=== PATIENT | male | born 1985 | race African-American/Black ===

== ENCOUNTER 2018-01-12 13:33 | Emergency (ER) | payer SELFPAY ==
[~2018-01-12] VITALS: Ht 172.7 cm; Wt 135.0 kg
[2018-01-12 13:38] VITALS: BP 193/106; PULSE 79; RESP 17; TEMP 98.6; O2SAT 98
[2018-01-12] MEDS ORDERED: SODIUM CHLORIDE 0.9% FLUSH 10 ML FLUSH IVF PRN (15:45)
[2018-01-12 16:18] LABS: AUTOMATED NEUTROPHIL # 5.5 TH/MM3 (1.8-7.7); BASOPHIL # 0.1 TH/MM3 (0-0.2); BASOPHIL % 0.6 % (0.0-2.0); EOSINOPHIL # 0.2 TH/MM3 (0-0.4); EOSINOPHIL % 2.2 % (0.0-4.0); HEMATOCRIT 43.8 % (39.0-51.0); HEMOGLOBIN 14.6 GM/DL (13.0-17.0); LYMPH % 24.7 % (9.0-44.0); LYMPHOCYTE # 2.1 TH/MM3 (1.0-4.8); MEAN CELL VOLUME 84.7 FL (80.0-100.0); MEAN CORPUSCULAR HEMOGLOBIN 28.2 PG (27.0-34.0); MEAN CORPUSCULAR HGB CONC 33.2 % (32.0-36.0); MEAN PLATELET VOLUME 7.8 FL (7.0-11.0); MONO % 6.4 % (0.0-8.0); MONOCYTE # 0.5 TH/MM3 (0-0.9); NEUT % 66.1 % (16.0-70.0); PLATELET COUNT 246 TH/MM3 (150-450); RED BLOOD COUNT 5.17 MIL/MM3 (4.50-5.90); RED CELL DISTRIBUTION WIDTH 14.4 % (11.6-17.2); WHITE BLOOD COUNT 8.3 TH/MM3 (4.0-11.0)
[2018-01-12 16:27] VITALS: BP_SYST 158; BP_SYST 171; BP_DIAS 89; BP_DIAS 98; PULSE 72; PULSE 78; RESP 18; O2SAT 98
[2018-01-12 16:28] LABS: INTERNATIONAL NORMALIZED RATIO 1.1 RATIO; PROTHROMBIN TIME - PATIENT 10.8 SEC (9.8-11.6)
[2018-01-12] MEDS ORDERED: HYDR12.57 PO (16:35)
[2018-01-12] MEDS ORDERED: AMLO10 PO ×2 (16:35→16:46)
--- NOTE | 2018-01-12 16:41 | PD ---
HPI Chief Complaint: Hypertension Time Seen by Provider: 15:42 Travel History International Travel<30 days: No Contact w/Intl Traveler<30days: No Traveled to known affect area: No History of Present Illness HPI 32-year-old -Iranian male presents emergency department with reports of hypertension. Patient was at [facility] and sent here due to his high blood pressure. Patient denies any symptoms of hypertension including no headache, dizziness, or chest pain or shortness of breath. He has no significant edema. Patient states he was taking Norvasc 20mg as well as 12.5 mg hydrochlorothiazide up until 2 years ago. He just stopped taking it. He is trying to be medically cleared so he can return to [facility]. He has no acute medical issues otherwise. He has allergies to shellfish. [facility] Past Medical History Hypertension: Yes Social History Alcohol Use: No Tobacco Use: No Substance Use: No Allergies-Medications (Allergen,Severity, Reaction): Coded Allergies: shellfish derived (Verified Allergy, Severe, hives, 01/12/18) Reported Meds & Prescriptions Reported Meds & Active Scripts Active Hydrochlorothiazide 12.5 Mg Tab 12.5 Mg PO DAILY Norvasc (Amlodipine Besylate) 10 Mg Tab 10 Mg PO DAILY Reported Hydrochlorothiazide 12.5 Mg Cap 12.5 Mg PO DAILY Norvasc (Amlodipine Besylate) 10 Mg Tab 10 Mg PO DAILY Review of Systems Except as stated in HPI: all other systems reviewed are Neg General / Constitutional: No: Fever Eyes: No: Visual changes HENT: No: Headaches Cardiovascular: No: Chest Pain or Discomfort Respiratory: No: Shortness of Breath Gastrointestinal: No: Abdominal Pain Genitourinary: No: Dysuria Musculoskeletal: No: Pain Skin: No Rash Neurologic: No: Weakness Psychiatric: No: Depression Endocrine: No: Polydipsia Hematologic/Lymphatic: No: Easy Bruising Physical Exam Narrative GENERAL: Moderately obese male in no acute distress. SKIN: Warm and dry. Normal color. Normal turgor. HEAD: Atraumatic. Normocephalic. EYES: Pupils equal and round. No scleral icterus. No injection or drainage. ENT: No nasal bleeding or discharge. Mucous membranes pink and moist. Pharynx is clear. Airway is patent. NECK: Trachea midline. Supple and nontender. CARDIOVASCULAR: Regular rate and rhythm. RESPIRATORY: No accessory muscle use. Clear to auscultation. Breath sounds equal bilaterally. GASTROINTESTINAL: Abdomen soft, non-tender, nondistended. Hepatic and splenic margins not palpable. MUSCULOSKELETAL: Extremities without clubbing, cyanosis, or edema. No obvious deformities. NEUROLOGICAL: Awake and alert. No obvious cranial nerve deficits. Motor grossly within normal limits. Five out of 5 muscle strength in the arms and legs. Normal speech. PSYCHIATRIC: Appropriate mood and affect; insight and judgment normal. Data Data Last Documented VS Vital Signs Date Time Temp Pulse Resp B/P (MAP) Pulse Ox O2 Delivery O2 Flow Rate FiO2 01/12/18 16:27 72 18 158/89 (112) 98 Room Air 01/12/18 13:38 98.6 Orders Orders Complete Blood Count With Diff (01/12/18 15:42) Prothrombin Time / Inr (Pt) (01/12/18 15:42) Act Partial Throm Time (Ptt) (01/12/18 15:42) Ecg Monitoring (01/12/18 15:42) Bilateral Bp Monitoring (01/12/18 15:42) Iv Access Insert/Monitor (01/12/18 15:42) Oximetry (01/12/18 15:42) Sodium Chloride 0.9% Flush (Ns Flush) (01/12/18 15:45) Comprehensive Metabolic Panel (01/12/18 15:42) Labs Laboratory Tests Test 01/12/18 16:00 White Blood Count 8.3 TH/MM3 Red Blood Count 5.17 MIL/MM3 Hemoglobin 14.6 GM/DL Hematocrit 43.8 % Mean Corpuscular Volume 84.7 FL Mean Corpuscular Hemoglobin 28.2 PG Mean Corpuscular Hemoglobin Concent 33.2 % Red Cell Distribution Width 14.4 % Platelet Count 246 TH/MM3 Mean Platelet Volume 7.8 FL Neutrophils (%) (Auto) 66.1 % Lymphocytes (%) (Auto) 24.7 % Monocytes (%) (Auto) 6.4 % Eosinophils (%) (Auto) 2.2 % Basophils (%) (Auto) 0.6 % Neutrophils # (Auto) 5.5 TH/MM3 Lymphocytes # (Auto) 2.1 TH/MM3 Monocytes # (Auto) 0.5 TH/MM3 Eosinophils # (Auto) 0.2 TH/MM3 Basophils # (Auto) 0.1 TH/MM3 CBC Comment DIFF FINAL Differential Comment Prothrombin Time 10.8 SEC Prothromb Time International Ratio 1.1 RATIO Activated Partial Thromboplast Time 25.3 SEC Blood Urea Nitrogen 11 MG/DL Creatinine 1.11 MG/DL Random Glucose 80 MG/DL Total Protein 8.0 GM/DL Albumin 3.7 GM/DL Calcium Level 8.7 MG/DL Alkaline Phosphatase 61 U/L Aspartate Amino Transf (AST/SGOT) 23 U/L Alanine Aminotransferase (ALT/SGPT) 51 U/L Total Bilirubin 0.3 MG/DL Sodium Level 141 MEQ/L Potassium Level 3.5 MEQ/L Chloride Level 103 MEQ/L Carbon Dioxide Level 29.9 MEQ/L Anion Gap 8 MEQ/L Estimat Glomerular Filtration Rate 77 ML/MIN MDM Medical Decision Making Medical Screen Exam Complete: Yes Emergency Medical Condition: Yes Differential Diagnosis Uncontrolled essential hypertension. Need for medical clearance. Need for blood work. Narrative Course Patient appears medically stable at time of exam Patient's blood pressure is rechecked by nursing staff after 10 minutes with a larger cuff and found to be 150/89. Labs are checked including CBC, and CMP. CBC is unremarkable. Coagulation studies are normal. Chemistries show no acute findings. Patient will be restarted on Norvasc 10 mg daily as well as hydrochlorothiazide 12.5 mg daily. He will have 30 day supply with 2 refills. Patient is medically cleared for discharge. Diagnosis Primary Impression: Essential hypertension Referrals: [facility] Patient Instructions: 2 Gram Sodium Diet (GEN), General Instructions Med/Other Pt SpecificInfo: Prescription(s) given Scripts Hydrochlorothiazide (Hydrochlorothiazide) 12.5 Mg Tab 12.5 MG PO DAILY, #30 TAB 2 Refills Prov: Miky Kirby MD 01/12/18 Amlodipine (Norvasc) 10 Mg Tab 10 MG PO DAILY for Blood Pressure Management, #30 TAB 2 Refills Prov: Miky Kirby MD 01/12/18 Disposition: DISCHARGE HOME Condition: Stable Gerald Reed January 12, 2018 16:41
[2018-01-12 16:46] LABS: ALBUMIN 3.7 GM/DL (3.4-5.0); ALT (GPT) 51 U/L (12-78); AST (GOT) 23 U/L (15-37); BICARBONATE 29.9 MEQ/L (21.0-32.0); BLOOD UREA NITROGEN 11 MG/DL (7-18); CALCIUM 8.7 MG/DL (8.5-10.1); CHLORIDE 103 MEQ/L (98-107); CREATININE 1.11 MG/DL (0.60-1.30); GLOMERULAR FILTRATION RATE 77 ML/MIN (>89); GLUCOSE,RANDOM 80 MG/DL (74-106); SODIUM (NA) 141 MEQ/L (136-145)
[2018-01-12] MEDS ORDERED: HYDR12.56 PO (16:46)
[2018-01-12 16:48] LABS: ALKALINE PHOSPHATASE 61 U/L (45-117); TOTAL BILIRUBIN ADULT 0.3 MG/DL (0.2-1.0)
== END 2018-01-12 17:24 | disposition home or self-care (01) ==
LOC: NEPD 13:33
DX: I10 Essential (primary) hypertension (principal)
CPT/HCPCS: 80053; 85025; 85610; 85730; 99283